=== PATIENT | female | born 1980 | race Caucasian/White ===

== ENCOUNTER 2017-07-22 21:36 | Emergency (ER) | payer BC, OTHER ==
[~2017-07-22] VITALS: Ht 167.6 cm; Wt 105.1 kg
[2017-07-22 21:40] VITALS: TEMP 36.3; Ht 167.6 cm; Wt 105.1 kg
[2017-07-22] MEDS ORDERED: ASPIRIN 81 MG CHEW PO STA (21:57)
[2017-07-22 22:00] VITALS: O2SAT 99
--- NOTE | 2017-07-22 22:10 | EMERGENCY ROOM VISIT NOTE ---
History Report prepared by Bimal: Florence Chow Under the Supervision of: Dr. Ladarius Bowling M.D. First contact with patient: 21:51 Chief Complaint: CHEST PAIN Stated Complaint: CHEST PAIN,SOB,DIZZY History of Present Illness The patient is a 37 year old female who presents to the Emergency Room with complaints of constant chest heaviness and shortness of breath beginning two days ago. Chest heaviness is located in the center of the chest. The patient states her symptoms started when she was "chasing my kids around". She woke up this morning with nausea. As the day has progressed, the patient started to get lightheaded and dizzy. She notes a cough but denies any vomiting. She denies any chance of . The patient has no personal or family cardiac disease history. Source of History: patient Onset: two days ago Position: chest Quality: other (shotness of breath) Timing: constant Associated Symptoms: + cough, + chest pain, + SOB, No vomiting Review of Systems See HPI for pertinent positives and negatives. A total of ten systems were reviewed and were otherwise negative. Past Medical & Surgical Medical Problems: (1) No Known Active Medical Problems Family History Patient reports no known family medical history. Social History Smoking Status: Never Smoker Marital Status: single Housing Status: lives with family Current/Historical Medications Scheduled B-Complex Vitamins (Vitamin B Complex), 1 TAB PO DAILY Control Pills ( Control Pills), 1 TAB PO DAILY Ergocalciferol (Vitamin D 91681 Unit), 50,000 INTER.UNIT PO WK Meclizine HCl (Meclizine HCl), 1 TAB PO TID Multiple Vitamins W/ Minerals (Womens One Daily), 1 TAB PO DAILY Sertraline Hcl (Zoloft), 150 MG PO DAILY Allergies Coded Allergies: No Known Allergies (Unverified , 07/22/17) Physical Exam Vital Signs Date Time Temp Pulse Resp B/P (MAP) Pulse Ox O2 Delivery O2 Flow Rate FiO2 07/23/17 00:25 64 18 107/62 98 Room Air 07/22/17 23:38 64 18 107/62 98 Room Air 07/22/17 22:11 72 18 116/69 98 Room Air 07/22/17 22:05 72 07/22/17 22:00 99 Room Air 07/22/17 21:58 99 Room Air 07/22/17 21:58 99 Room Air 07/22/17 21:40 36.3 71 18 134/71 99 Room Air Physical Exam Physical Exam GENERAL: She is oriented to person, place, and time. She appears well- developed and well-nourished. She does not appear distressed. ____ HENT: Exam performed. Head: Normocephalic and atraumatic. Right Ear: External ear normal. No mastoid tenderness. Left Ear: External ear normal. No mastoid tenderness. Mouth/Throat: The oropharynx is clear and moist. No trismus in the jaw. No dental abscesses or uvula swelling. No oropharyngeal exudate or tonsillar abscesses. ____ EYES: Conjunctivae and EOM are normal. Pupils are equal, round, and reactive to light. Right eye exhibits no discharge. Left eye exhibits no discharge. No scleral icterus. ____ NECK: Normal range of motion. Neck supple. No JVD present. No spinous process tenderness present. No carotid bruit present. No rigidity. No tracheal deviation and normal range of motion present. No Brudzinski's sign and no Kernig 's sign noted. ____ CV: Normal rate, regular rhythm, normal heart sounds and intact distal pulses. There is no peripheral edema. Palpable radial pulses bue. ____ PULM/CHEST: Effort normal and breath sounds normal. No respiratory distress. No stridor. She has no wheezes. She has no rales. Chest Wall: She exhibits no tenderness. ____ ABD: The abdomen is soft. Bowel sounds are normal. She has no distension. No mass is present. There is no tenderness. There is no rebound, no guarding, no Dunbar's sign and no tenderness at McBurney's point. Rovsig negative MUSC/SKEL: Normal range of motion. There is no peripheral edema, tenderness or deformity. LYMPH: No cervical adenopathy. ____ NEURO: She is alert and oriented to person, place, and time. She has normal strength. No cranial nerve deficit or sensory deficit. Coordination and gait normal. GCS eye subscore is 4. GCS verbal subscore is 5. GCS motor subscore is 6. Cerebellar tests wnl. ____ SKIN: Skin is warm and dry. She is not diaphoretic. ____ PSYCH: She has a normal mood and affect. Her behavior is normal. Judgment and thought content normal. ____ Medical Decision & Procedures ER Provider Diagnostic Interpretation: Radiology results as stated below per my review and radiologist interpretation: CHEST 2 VIEWS ROUTINE FINDINGS: The cardiac and mediastinal contours are normal. There is no evidence of focal pulmonary consolidation. There is no evidence of failure. No pleural effusions are visualized.[ IMPRESSION: No active disease in the chest. Electronically signed by: Flaco Singh M.D. Laboratory Results 07/22/17 22:04 Red Blood Count 4.80, Mean Corpuscular Volume 85.4, Mean Corpuscular Hemoglobin 30.6, Mean Corpuscular Hemoglobin Concent 35.9, Mean Platelet Volume 9.0, Neutrophils (%) (Auto) 52.4, Lymphocytes (%) (Auto) 36.4, Monocytes (%) (Auto) 8.5, Eosinophils (%) (Auto) 1.8, Basophils (%) (Auto) 0.7, Neutrophils # (Auto) 5.90, Lymphocytes # (Auto) 4.10, Monocytes # (Auto) 0.96, Eosinophils # (Auto) 0.20, Basophils # (Auto) 0.08 07/22/17 22:04 Test 07/22/17 22:04 07/23/17 00:34 White Blood Count 11.26 K/uL (4.8-10.8) Red Blood Count 4.80 M/uL (4.2-5.4) Hemoglobin 14.7 g/dL (12.0-16.0) Hematocrit 41.0 % (37-47) Mean Corpuscular Volume 85.4 fL (80-100) Mean Corpuscular Hemoglobin 30.6 pg (25-34) Mean Corpuscular Hemoglobin Concent 35.9 g/dl (32-36) Platelet Count 301 K/uL (130-400) Mean Platelet Volume 9.0 fL (7.4-10.4) Neutrophils (%) (Auto) 52.4 % Lymphocytes (%) (Auto) 36.4 % Monocytes (%) (Auto) 8.5 % Eosinophils (%) (Auto) 1.8 % Basophils (%) (Auto) 0.7 % Neutrophils # (Auto) 5.90 K/uL (1.4-6.5) Lymphocytes # (Auto) 4.10 K/uL (1.2-3.4) Monocytes # (Auto) 0.96 K/uL (0.11-0.59) Eosinophils # (Auto) 0.20 K/uL (0-0.5) Basophils # (Auto) 0.08 K/uL (0-0.2) RDW Standard Deviation 40.1 fL (36.4-46.3) RDW Coefficient of Variation 12.9 % (11.5-14.5) Immature Granulocyte % (Auto) 0.2 % Immature Granulocyte # (Auto) 0.02 K/uL (0.00-0.02) Prothrombin Time 9.7 SECONDS (9.0-12.0) Prothromb Time International Ratio 0.9 (0.9-1.1) Activated Partial Thromboplast Time 25.2 SECONDS (21.0-31.0) Partial Thromboplastin Ratio 1.0 D-Dimer 310 ug/L FEU (0-500) Anion Gap 7.0 mmol/L (3-11) Est Creatinine Clear Calc Drug Dose 114.0 ml/min Estimated GFR () 105.2 Estimated GFR (Non- 90.8 BUN/Creatinine Ratio 13.4 (10-20) Calcium Level 8.8 mg/dl (8.5-10.1) Troponin I < 0.015 ng/ml (0-0.045) Bedside Troponin I < 0.030 ng/ml (0-0.045) Laboratory results reviewed by me Medications Administered Medications (Trade) Dose Ordered Sig/Raúl Route Start Time Stop Time Status Last Admin Dose Admin Aspirin (Aspirin Chew) 324 mg NOW STAT PO 07/22/17 21:57 07/22/17 21:58 DC 07/22/17 22:22 324 MG Potassium Chloride (Klor-Con M10) 40 meq NOW STAT PO 07/22/17 22:46 07/22/17 22:47 DC 07/22/17 22:58 40 MEQ ECG Per My Interpretation Indication: chest pain Rate (beats per minute): 69 Rhythm: sinus rhythm Findings: other (TN QRS and QTC within normal limits. No ST elevation or ST depression) ED Course 2151: The patient was evaluated in room B5. A complete history and physical exam was performed. 2156: Ordered Aspirin 324 mg PO. 2245: Ordered Potassium Chloride 40 meq PO. Medical Decision 0056: Vital signs stable. EKG, imaging, and labs including d-dimer and 2 sets of troponins negative. Potassium low, replaced in the emergency department. Patient states her chest pain is better. Patient will be discharged with follow -up PCP. At time of discharge patient reports some mild dizziness, given meclizine in the emergency department prior to discharge and will be sent home with prescription for meclizine. DISCHARGE - Plan of care discussed with patient and questions answered. The patient was given both verbal and printed discharge instructions. The patient verbalized understanding and ability to comply. The patient is to seek outpatient follow up as noted in the discharge instructions. The patient verbalized understanding and ability to comply. The patient is discharged in stable condition. The patient was instructed to return for worsening symptoms. Medication Reconcilliation Current Medication List: was personally reviewed by me Blood Pressure Screening Patient's blood pressure: Normal blood pressure Impression Primary Impression: Chest pain Scribe Attestation The scribe's documentation has been prepared under my direction and personally reviewed by me in its entirety. I confirm that the note above accurately reflects all work, treatment, procedures, and medical decision making performed by me. The chart was completed utilizing [employer] Speech voice recognition software. Grammatical errors, random word insertions, pronoun errors, and incomplete sentences are an occasional consequence of this system due to software limitations, ambient noise, and hardware issues. Any formal questions or concerns about the content, text, or information contained within the body of this dictation should be directly addressed to the physician for clarification. Departure Information Prescriptions Meclizine HCl (Meclizine HCl) 12.5 Mg Tab 1 TAB PO TID for Dizziness or Vertigo for 10 Days, #30 TAB Prov: Ladarius Bowling M.D. 07/23/17 Forms Call Back Authorization, HOME CARE DOCUMENTATION FORM, IMPORTANT VISIT INFORMATION Patient Instructions My [facility] Problem Qualifiers Primary Impression: Chest pain Chest pain type: unspecified Qualified Codes: R07.9 - Chest pain, unspecified
[2017-07-22 22:15] LABS: BASO % 0.7 %; BASO ABS # 0.08 K/uL (0-0.2); EOS % 1.8 %; HEMOGLOBIN 14.7 g/dL (12.0-16.0); IG# 0.02 K/uL (0.00-0.02); LYMPH % 36.4 %; MEAN CELL VOLUME 85.4 fL (80-100); MEAN CORPUSCULAR HEMOGLOBIN 30.6 pg (25-34); MEAN CORPUSCULAR HGB CONC 35.9 g/dl (32-36); MONO % 8.5 %; MONO ABS # 0.96 K/uL (0.11-0.59); NEUT % 52.4 %; PLATELET COUNT 301 K/uL (130-400); RED CELL DISTRIBUTION WIDTH CV 12.9 % (11.5-14.5); RED CELL DISTRIBUTION WIDTH SD 40.1 fL (36.4-46.3); WHITE BLOOD COUNT 11.26 K/uL (4.8-10.8)
[2017-07-22 22:28] LABS: INR 0.9 (0.9-1.1); PTT PATIENT 25.2 SECONDS (21.0-31.0)
[2017-07-22 22:33] LABS: BLOOD UREA NITROGEN 11 mg/dl (7-18); CALCIUM 8.8 mg/dl (8.5-10.1); CARBON DIOXIDE 26 mmol/L (21-32); CREATININE 0.82 mg/dl (0.60-1.20); GLUCOSE 138 mg/dl (70-99); POTASSIUM 3.2 mmol/L (3.5-5.1); SODIUM 137 mmol/L (136-145)
--- NOTE | 2017-07-22 22:39 | DIAGNOSTIC IMAGING REPORT ---
CHEST 2 VIEWS ROUTINE CLINICAL HISTORY: Atypical chest pain COMPARISON STUDY: No previous studies for comparison. FINDINGS: The cardiac and mediastinal contours are normal. There is no evidence of focal pulmonary consolidation. There is no evidence of failure. No pleural effusions are visualized.[ IMPRESSION: No active disease in the chest. Electronically signed by: Flaco Singh M.D. 07/22/2017 10:38 PM Dictated Date/Time: 07/22/2017 10:37 PM
[2017-07-22] MEDS ORDERED: POTASSIUM CHLORIDE 10 MEQ TABCR PO STA (22:46)
[2017-07-22] MEDS ORDERED: ERGO500011 PO (22:48)
[2017-07-22] MEDS ORDERED: BCPILLS PO (22:48)
[2017-07-22] MEDS ORDERED: MULT-240 PO (22:48)
[2017-07-22] MEDS ORDERED: B-COTAB18 PO (22:48)
[2017-07-22] MEDS ORDERED: SERT100T PO (22:48)
[2017-07-23] MEDS ORDERED: MECL1TAB40 PO (00:53)
[2017-07-23] MEDS ORDERED: MECLIZINE HCL 12.5 MG TAB PO STA (00:54)
[2017-07-23 01:19] VITALS: BP 108/66; PULSE 68; O2SAT 98
== END 2017-07-23 01:21 | disposition home or self-care (01) ==
LOC: C.EDB 21:38
DX: R07.9 Chest pain, unspecified (principal)